=== PATIENT | female | born 1980 | race American Indian/Alaskan Native ===

== ENCOUNTER 2018-11-27 09:59 | Emergency (ER) | payer OTHER ==
[2018-11-27 10:23] VITALS: TEMP 98.6; O2SAT 100
[2018-11-27 10:35] VITALS: RESP 18
[2018-11-27 11:29] LABS: VENOUS BLOOD GAS BASE EXCESS 1.5 mmol/L (0.0-2.0); VENOUS BLOOD GAS PO2 25 mm/Hg (30-55)
[2018-11-27 11:34] LABS: BASO # 0.01 K/mm3 (0.0-2.0); BASO % 0.2 % (0.0-3.0); EOS # 0.1 (0.0-0.7); EOS % 0.8 % (1.5-5.0); HEMOGLOBIN 11.7 g/dL (12.0-16.0); LYMPH # 1.8 (1.2-3.4); LYMPH % 29.6 % (22.0-35.0); MEAN CORPUSCULAR HEMOGLOBIN 26.5 pg (25.0-35.0); MEAN CORPUSCULAR HGB CONC 30.8 g/dl (31.0-37.0); MONO # 0.4 (0.1-0.6); MONO % 7.1 % (1.0-6.0); PH,URINE 6.5 (4.7-8.0); RBC 4.42 10^6/uL (3.5-6.1); RED CELL DISTRIBUTION WIDTH 14.6 % (11.5-14.5); URINE BILIRUBIN NEGATIVE (NEGATIVE); URINE BLOOD NEGATIVE (NEGATIVE); URINE GLUCOSE (UA) NEGATIVE (NEGATIVE); URINE LEUKOCYTE ESTERASE NEGATIVE Leu/uL (NEGATIVE); URINE PROTEIN NEGATIVE mg/dL (<30 mg/dL); URINE UROBILINOGEN 0.2 E.U./dL (<1 E.U./dL); WHITE BLOOD COUNT 6.1 10^3/uL (4.5-11.0)
[2018-11-27 11:35] LABS: URINE APPEARANCE CLEAR (CLEAR); URINE COLOR YELLOW (YELLOW)
[2018-11-27 11:39] LABS: ALB/GLOB RATIO 1.3 (1.1-1.8); ALBUMIN 4.2 g/dL (3.0-4.8); ALT/SGPT 44 U/L (7-56); AST/SGOT 35 U/L (14-36); BLOOD UREA NITROGEN 10 mg/dL (7-21); CALCIUM 9.1 mg/dL (8.4-10.5); GFR NON-AFRICAN AMERICAN > 60
[2018-11-27 11:47] LABS: INR 1.08; PARTIAL THROMBOPLASTIN TIME 28.2 Seconds (26.9-38.3); PROTHROMBIN TIME 12.2 SECONDS (9.4-12.5)
[2018-11-27 11:49] LABS: B-TYPE NATRIURETIC PEPTIDE 765 pg/mL (0-450); TROPONIN I < 0.01 ng/mL
[2018-11-27 12:00] LABS: D DIMER < 200 ng/mlDDU (0-243)
--- NOTE | 2018-11-27 14:03 | RAD ---
Date of service: 11/27/2018 HISTORY: SOB/cough COMPARISON: No prior. FINDINGS: LUNGS: Congestive changes are seen bilaterally. Although the findings could be due to CHF in this age group bronchitis is more likely. Clinical correlation is suggested PLEURA: No significant pleural effusion identified, no pneumothorax apparent. CARDIOVASCULAR: No aortic atherosclerotic calcification present. Normal cardiac size. No pulmonary vascular congestion. OSSEOUS STRUCTURES: No significant abnormalities. VISUALIZED UPPER ABDOMEN: Normal. OTHER FINDINGS: None. IMPRESSION: Congestive changes are seen bilaterally. Although the findings could be due to CHF, in this age group bronchitis is more likely. Clinical correlation is suggested
[2018-11-27 14:06] VITALS: BP 133/76; PULSE 81
--- NOTE | 2018-11-27 14:12 | ED PDOC ---
Arrival/HPI - General Chief Complaint: Shortness Of Breath Time Seen by Provider: 11/27/18 10:01 Historian: Patient - History of Present Illness Narrative History of Present Illness (Text): 11/27/18 14:05 38yo female with no pmhx who present with one week history of nonproductive cough, SOB, orthopnea, swelling to lower legs b/l. She did not take any medication for the symptoms. states the symptom became worse overnight. Denies fever, chills, nausea, chest pain, dizziness, calf pain, abdominal pain, any other complaint. Past Medical History - Provider Review Nursing Documentation Reviewed: Yes - Infectious Disease Hx of Infectious Diseases: None - Reproductive Menopause: No Currently : No - Cardiac Hx Cardiac Disorders: Yes Hx Heart Murmur: Yes - Pulmonary Hx Respiratory Disorders: No - Renal Hx Renal Disorder: Yes Hx Kidney Stones: Yes - Endocrine/Metabolic Hx Endocrine Disorders: No - Psychiatric Hx Substance Use: No - Anesthesia Hx Anesthesia: No Hx Anesthesia Reactions: No Family/Social History - Physician Review Nursing Documentation Reviewed: Yes Family/Social History: Unknown Family HX Smoking Status: Unknown If Ever Smoked Hx Alcohol Use: Yes Frequency of alcohol use: Socially Hx Substance Use: No Allergies/Home Meds Allergies/Adverse Reactions: Allergies shellfish derived Allergy (Verified 11/27/18 10:12) RASH Review of Systems - Physician Review All systems were reviewed & negative as marked: Yes - Review of Systems Constitutional: Normal Eyes: Normal ENT: Normal Respiratory: SOB, Cough. absent: Sputum, Wheezing Cardiovascular: Edema. absent: Chest Pain, Palpitations Gastrointestinal: Normal Genitourinary Female: Normal Musculoskeletal: Normal Skin: Normal Neurological: Normal Endocrine: Normal Hemo/Lymphatic: Normal Psychiatric: Normal Physical Exam Vital Signs Reviewed: Yes Vital Signs Temp Pulse Resp BP Pulse Ox 11/27/18 11:55 18 11/27/18 10:34 94 H 18 151/94 H 100 11/27/18 10:06 98.6 F 92 H 20 134/85 100 Temperature: Afebrile Blood Pressure: Normal Pulse: Regular Respiratory Rate: Normal Appearance: Positive for: Well-Appearing, Non-Toxic, Comfortable Pain Distress: None Mental Status: Positive for: Alert and Oriented X 3 - Systems Exam Head: Present: Atraumatic, Normocephalic Pupils: Present: PERRL Extroacular Muscles: Present: EOMI Conjunctiva: Present: Normal Mouth: Present: Moist Mucous Membranes Neck: Present: Normal Range of Motion Respiratory/Chest: Present: Clear to Auscultation, Good Air Exchange. No: Respiratory Distress, Accessory Muscle Use, Wheezes, Decreased Breath Sounds, Rales, Retracting, Rhonchi, Tachypneic Cardiovascular: Present: Regular Rate and Rhythm, Normal S1, S2. No: Murmurs Abdomen: No: Tenderness, Distention, Peritoneal Signs Back: Present: Normal Inspection Upper Extremity: Present: Normal Inspection. No: Cyanosis, Edema Lower Extremity: Present: Normal Inspection, Edema (1+ pitting edema to b/l ankle). No: CALF TENDERNESS Neurological: Present: GCS=15, CN II-XII Intact, Speech Normal Skin: Present: Warm, Dry, Normal Color. No: Rashes Psychiatric: Present: Alert, Oriented x 3, Normal Insight, Normal Concentration Medical Decision Making ED Course and Treatment: 11/27/18 17:26 38yo female who present to ED with stated history. she was not in any respiratory distress. Labs CXR EKG EKG Labs was reviewed and mild elevation of BNP was noted. CE was wnl. Pt denied chest pain and any pmhx chest xray IMPRESSION: Congestive changes are seen bilaterally. Although the findings could be due to CHF, in this age group bronchitis is more likely. Clinical correlation is suggested Result was DW the pt She was treated a dose of Lasix. Treated and DC home with Zithromax and antitussive, albuterol Strongly advised to f/u with her PMD TRT ED for any new or worsening symptoms - Lab Interpretations Lab Results: pO2 25 mm/Hg (30-55) L 11/27/18 11:19 VBG pH 7.40 (7.32-7.43) 11/27/18 11:19 VBG pCO2 43.0 (40-60) 11/27/18 11:19 VBG HCO3 26.6 mmol/l (21-28) 11/27/18 11:19 VBG Total CO2 27.9 mmol.L (22-28) 11/27/18 11:19 VBG O2 Sat (Calc) 51.0 % (40-65) 11/27/18 11:19 VBG Base Excess 1.5 mmol/L (0.0-2.0) 11/27/18 11:19 VBG Potassium 4.1 mmol/L (3.6-5.2) 11/27/18 11:19 Sodium 139.0 mmol/L (132-148) 11/27/18 11:19 Chloride 108.0 mmol/L (98-107) H 11/27/18 11:19 Glucose 83 mg/dl (65-105) 11/27/18 11:19 Lactate 1.1 mmol/L (0.7-2.1) 11/27/18 11:19 FiO2 21.0 % 11/27/18 11:19 PT 12.2 SECONDS (9.4-12.5) 11/27/18 11:00 INR 1.08 11/27/18 11:00 APTT 28.2 Seconds (26.9-38.3) 11/27/18 11:00 D-Dimer, Quantitative < 200 ng/mlDDU (0-243) 11/27/18 11:00 Troponin I < 0.01 ng/mL 11/27/18 11:00 NT-Pro-B Natriuret Pep 765 pg/mL (0-450) H 11/27/18 11:00 Total Bilirubin 0.5 mg/dL (0.2-1.3) 11/27/18 11:00 AST 35 U/L (14-36) 11/27/18 11:00 ALT 44 U/L (7-56) 11/27/18 11:00 Alkaline Phosphatase 59 U/L (38-126) 11/27/18 11:00 Total Protein 7.5 g/dL (5.8-8.3) 11/27/18 11:00 Albumin 4.2 g/dL (3.0-4.8) 11/27/18 11:00 Globulin 3.3 gm/dL 11/27/18 11:00 Albumin/Globulin Ratio 1.3 (1.1-1.8) 11/27/18 11:00 Urine Color Yellow (YELLOW) 11/27/18 11:00 Urine Appearance Clear (CLEAR) 11/27/18 11:00 Urine pH 6.5 (4.7-8.0) 11/27/18 11:00 Ur Specific [place] 1.015 (1.005-1.035) 11/27/18 11:00 Urine Protein Negative mg/dL (<30 mg/dL) 11/27/18 11:00 Urine Glucose (UA) Negative mg/dL (NEGATIVE) 11/27/18 11:00 Urine Ketones Negative mg/dL (NEGATIVE) 11/27/18 11:00 Urine Blood Negative (NEGATIVE) 11/27/18 11:00 Urine Nitrate Negative (NEGATIVE) 11/27/18 11:00 Urine Bilirubin Negative (NEGATIVE) 11/27/18 11:00 Urine Urobilinogen 0.2 E.U./dL (<1 E.U./dL) 11/27/18 11:00 Ur Leukocyte Esterase Negative Larry/uL (NEGATIVE) 11/27/18 11:00 - RAD Interpretation Radiology Orders: 11/27/18 10:52 CHEST PORTABLE [RAD] Stat - Medication Orders Current Medication Orders: Discontinued Medications Azithromycin (Zithromax) 500 mg PO STAT STA; Protocol Stop: 11/27/18 14:03 Benzonatate (Tessalon Perles) 100 mg PO TID STA Stop: 11/27/18 14:04 Furosemide (Lasix) 20 mg PO STAT STA Stop: 11/27/18 14:03 Disposition/Present on Arrival - Present on Arrival Any Indicators Present on Arrival: No History of DVT/PE: No History of Uncontrolled Diabetes: No Urinary Catheter: No History of Decub. Ulcer: No History Surgical Site Infection Following: None - Disposition Have Diagnosis and Disposition been Completed?: Yes Diagnosis: CHF (congestive heart failure), Bronchitis Disposition: HOME/ ROUTINE Disposition Time: 14:15 Patient Plan: Discharge Condition: STABLE Discharge Instructions (ExitCare): Heart Failure, Adult, Heart Healthy Diet, Acute Bronchitis, Heart Failure (ED) Additional Instructions: Follow up with your Doctor Return to ED for any new or worsening symptoms Prescriptions: RX: Albuterol HFA [Ventolin HFA 90 mcg/actuation (8 g)] 2 puff IH [id number] #1 puff Azithromycin [Zithromax] 250 mg PO DAILY #4 tab RX: Promethazine [Phenergan Syrup] 6.25 mg PO Q6 #100 cup Referrals: Bridger Penny MD [Staff Provider] - Follow up with primary Forms: [employer] ([place]ish)
--- NOTE | 2018-11-27 15:06 | CARD ---
APPROVED REPORT Date of service: 11/27/2018 EKG Measurement Heart [id number] <Conclusion> Sinus rhythm with premature atrial complexes Nonspecific ST and T wave abnormality Prolonged QT Abnormal ECG
== END 2018-11-27 14:48 | disposition home or self-care (01) ==
LOC: ED 09:59
DX: I50.9 Heart failure, unspecified (principal); J40 Bronchitis, not specified as acute or chronic